=== PATIENT | female | born 1990 | race Caucasian/White ===

== ENCOUNTER 2021-12-14 08:30 | Outpatient (REF) | payer BC, SELFPAY ==
[2021-12-14 11:31] LABS: Hemoglobin 12.7 g/dl (12.0-16.0); Mean Corpuscular HGB Conc 33.4 g/dl (31.0-35.0); Mean Corpuscular Hemoglobin 31.4 pg (27.0-33.0); Mean Corpuscular Volume 94.1 fL (80.0-98.0); Mean Platelet Volume 11.1 fL (9.4-12.3); Platelet Count 225 X10*3/uL (160-400); Red Blood Count 4.04 X10*6/uL (4.20-5.50); Red Cell Distribution Width 11.5 % (11.0-16.0); White Blood Count 4.2 X10*3/uL (4.8-10.8)
[2021-12-14 12:01] LABS: Alanine Aminotransferase 12 U/L (0-31); Albumin Level 4.1 g/dL (3.5-5.0); Alkaline Phosphatase 86 U/L (39-117); Anion Gap 10 (12-20); Aspartate Amino Transferase 21 U/L (5-31); Bilirubin Total 1.1 mg/dL (0.0-1.0); Blood Urea Nitrogen 13 mg/dL (9-16); Calcium 9.4 mg/dL (8.4-10.2); Carbon Dioxide 27 mmol/L (22-29); Chloride 108 mmol/L (96-108); Cholesterol 153 mg/dL; Estimated Glomerular Filt Rate > 60; Glucose Fasting 85 mg/dL (60-99); HDL Cholesterol 54 mg/dL; LDL Cholesterol Calculated 89 mg/dl; Potassium 4.5 mmol/L (3.3-5.1); Sodium 140 mmol/L (135-145); Total Protein 6.7 g/dL (6.5-8.0); Triglycerides 53 mg/dL
[2021-12-14 12:24] LABS: TSH reflex Free T4 0.95 uIU/mL (0.32-4.0)
== END 2021-12-14 08:31 | disposition home or self-care (01) ==
LOC: HO.WFDLDS 08:30
PROVIDERS: Visit Provider Hospitalist
DX: Z00.00 Encounter for general adult medical examination without abnormal findings (principal)
CPT/HCPCS: 36415; 80053; 80061; 84443; 85027

== ENCOUNTER 2022-03-16 08:21 | Outpatient (REF) | payer BC, SELFPAY ==
--- NOTE | ~2022-03-16 | US_ITS ---
EXAMINATION: US ABDOMEN COMPLETE CLINICAL INFORMATION: Epigastric abdominal pain. COMPARISON: None TECHNIQUE: Real-time imaging of the abdominal viscera. FINDINGS: PANCREAS: Normal. ABDOMINAL AORTA: The proximal, mid, and distal segments are normal in caliber. INFERIOR VENA CAVA: Visualized portions are normal. LIVER: Normal. The liver is normal in size. The liver contour is normal. Parenchymal echogenicity is normal. No focal hepatic lesion. There is no intrahepatic biliary duct dilatation seen. GALLBLADDER: Normal. The gallbladder is physiologically distended without evidence of stones, sludge, polyps, wall thickening or pericholecystic fluid. COMMON BILE DUCT: Normal in caliber measuring 0.2 cm in diameter. RIGHT KIDNEY: Normal. No hydronephrosis. No renal calculi or focal parenchymal lesions. The kidney measures 10.4 cm in maximum dimension. LEFT KIDNEY: Findings suggest a small 1.4 cm cyst in the pelvic region No hydronephrosis or renal calculi. The kidney measures 11.1 cm in maximum dimension. SPLEEN: Normal. The spleen measures 9.3 cm in maximum dimension. FREE FLUID: None. US/US abdomen complete IMPRESSION: No acute finding. No evidence of cholelithiasis or cholecystitis. There is no free fluid.
== END 2022-03-16 08:22 | disposition home or self-care (01) ==
LOC: HO.US 08:21
PROVIDERS: Visit Provider Internal Medicine
DX: R10.13 Epigastric pain (principal)
CPT/HCPCS: 76700

== ENCOUNTER 2022-04-15 09:26 | Outpatient (REF) | payer BC, SELFPAY ==
[2022-04-17 15:47] LABS: TS Negative Control Passed; TS Panel A 0; TS Panel B 0; TS Positive Control Passed; TSpotTB Negative (Negative)
== END 2022-04-15 09:27 | disposition home or self-care (01) ==
LOC: HO.WFDLDS 09:26
PROVIDERS: Visit Provider Hospitalist
DX: Z11.1 Encounter for screening for respiratory tuberculosis (principal)
CPT/HCPCS: 36415; 86481

== ENCOUNTER 2022-04-15 10:00 | Outpatient (RCR) | payer BC, SELFPAY ==
--- NOTE | 2022-03-22 14:11 | MHC.PT.EP ---
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 Pt expressing history of L medial>inferior scapular pain which also intermittently radiates down her L tricep. She expresses history of neck pain and demonstrates weakness of periscapular musculature,. She exhibits slumped posture, protracted and elevated L scapula, and weakened scapular stabilizers. Upon exam pt presents with sx most consistent with C6/C7 cervical radiculopathy. She is currently unable to exercise, unable to run, unable to sleep in SL, lift, or be active due to presence of this intermittent radiating pain. She expresses prior history of PT with some limited gains about a year and a half ago but expresses has never had traction treatment in the past. She expresses intermittent use of ibuprofen and poor outcomes/negative side effects from trial of previously prescribed gabapentin. Pt would benefit from attending skilled PT services at a frequency of 2x/week x 4 weeks to address impairments of neck pain, trial postural/scapular stabilization program, trial manual>mechanical cervical traction in effort to centralize L periscapular/L tricep radiating sx, and educate in gradual progression to resume baseline level of exercise. Pt exhibits good rehab potential and has a high level of motivation for therapy. She was educated re: findings of eval, goals of eval, and indications for treatment. Post eval she was trialed with gentle manual C-tx to C6/C7 levels with good tolerance. Pt was also shown some gentle midthoracic mobility and periscapular stretches in effort to reduce muscular tension. Pt exhibits decreased PA translation of mid thoracic region and sensitivity to gentle palpation along spine> medial>inferior border of L scapula. Thank you for this referral. Frequency and Duration: The patient will be seen 2x/week x 4 weeks Short Term Goals: 1. Centralize L UE sx to height of the neck. 2. Pt will demonstrate I HEP. 3. Pt will resume recreational exercise. 4. Demonstrate improved postural awareness in relationship to ADLS/IADLS. 5. Express 25% reduction in sx presentation of L radiating tricep sx. Plastic Joint Maker Goals: 1. Resume recreational exercise MOD I with good joint protection measures/body mechanics. 2. Report 75% reduction of L UE radiating sx to tricep. 3. Resolution of radiating L periscap sx by 75%. 4. I HEP. 5. Resume sleeping in SL MOD I without disturbance secondary to L UE sx. Treatment Plan: Modalities to reduce pain, spasms and effusion. Manual therapy to restore motion and function. Therapeutic exercise to improve strength and flexibility. Neuromuscular re-education for posture and balance. Therapeutic activities to return to functional activities of daily living. Electronically signed by: Yamilka Browne, PT, DPT Please sign and return to therapist. Thank you for your referral.
--- NOTE | 2022-04-15 14:52 | MHC.PT.OD ---
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 Pain Score and Location: 5-6/10 Objective Flowsheet: Tests & Measures see eval Significant crepitus/palpable throughout scapula and thoracic spine with increased thoracic flexion>ext. Exercises Review of Prone tricep kickbacks, rows to neutral, and shoulder extension x 2 set 8R with 3# weight while prone over pillow. review of self mobilization techniques lying both vertically and horizontally along foam roller with strong HEP programs for self care with education and mindfulness to C/S joint protection with technique (crossing arms across chest not pulling from back of neck), open books, with child pose added thread needle combo stretches in effot to open chest and midspine for mobility PRONE PA assessment tender and painful T3-T7 along L side ? L rotation of transverse process rotated- improved symmetry noted vs last session Review of cat/camel stretches, open book/threading needle stretches with arm extended and with elbow flexed (for L UE with R rotation>L rotation), AAROM shoulder flexion/scaption issued last session, AAROM shoulder flexion via bere x 5 minutes for shoulder flexion triggered arm numbness to hand reduced post pendulums, iso scap squeezes. Prone for PA mobs grade 3 sustained T6-T12, Assessment for rotation (+) manual for FRSl thoracic rotation for T6/7. Self mobilization over 1/2 foam roller for PA mobs. SL with arms crossed for guided soft tissue work to medial border of scapula. Prone PA assessment. Self care HEP sheets Iso scap retraction, AAROM shoulder flexion supine with cane, quadriped threading needle with foam roller Modalities Pt verbalized no significant relief with trial of mechanical traction x 2 previous trials so this was held today. Assessment: 04/15/22: Pt has attended 4 sessions and has been educated/compliant with her HEP when outside of PT. She has centralized her L lateral tricep UE sx but continues to express tenderness and constant ache in L T6/T7 region. Upon Posterior>Anterior segmental mobility assessment of T-spine, she exhibits decreased mobility and stiffness compared to lumbar region (has been educated how to address this w/ foam roller at home). She has been issued some gentle periscapular strengthening tasks top which is an improvement from before she started therapy and was unable to exercise at all). Pt may benefit from consult/referral to [facility] physician- she expresses previous history of trigger point injection x 1 with limited gain (some years ago), and previous trial of PT with limited gains. She expresses she had an xray of her thoracic spine 2 or 3 years ago with no significant abnormalities per pt. Pt received trial of mechanical traction to no change of medial per-iscap sx however she no longer has lateral UE radiating down arm. We discussed progress and activities in therapy to date. Therapist offered patient additional appointments but also encouraged her to follow up with PCP office in inquiry for referral to specialist as she has been in therapy for one month, verbalizing frustration with limited gains. Pt has not had MRI ? compression (+) sx consistent with referred pain in [place] area vs vertebral thoracic rotation. Pt was averaging attendance to therapy 1x/week or so and did not express significant gain/reduction in sx with trial mechanical traction however it sometimes may take repeated consistent treatment of such to make strides in goals. 03/31/22 Trial of manual therapy to correct thoracic rotation palpated T6 level on L. Pt able to perform prone therex following without pain (tricep ext most challenging no weight, shoulder ext and rows with 3# weight). Pt unsure but stated she believes she obtained some mild relief of L periscapular sx with trial of sustained mechanical traction this date. AAROM flexion via bere resulted in numbness radiating to hand, eased with shoulder pendulums. Significant palpable creipitus/grinding with increased thoracic flexion/scapular AROM noted. Pt is left hand dominant, 31 y/o female referred to PT from Luz Mcadams DNP, for treatment of Other specified disorders of bone, shoulder other disorders of bone shoulder. Pt expressing history of L medial>inferior scapular pain which also intermittently radiates down her L tricep. She expresses history of neck pain and demonstrates weakness of periscapular musculature,. She exhibits slumped posture, protracted and elevated L scapula, and weakened scapular stabilizers. Upon exam pt presents with sx most consistent with C6/C7 cervical radiculopathy. She is currently unable to exercise, unable to run, unable to sleep in SL, lift, or be active due to presence of this intermittent radiating pain. She expresses prior history of PT with some limited gains about a year and a half ago but expresses has never had traction treatment in the past. She expresses intermittent use of ibuprofen and poor outcomes/negative side effects from trial of previously prescribed gabapentin. Pt would benefit from attending skilled PT services at a frequency of 2x/week x 4 weeks to address impairments of neck pain, trial postural/scapular stabilization program, trial manual>mechanical cervical traction in effort to centralize L periscapular/L tricep radiating sx, and educate in gradual progression to resume baseline level of exercise. Pt exhibits good rehab potential and has a high level of motivation for therapy. She was educated re: findings of eval, goals of eval, and indications for treatment. Post eval she was trialed with gentle manual C-tx to C6/C7 levels with good tolerance. Pt was also shown some gentle midthoracic mobility and periscapular stretches in effort to reduce muscular tension. Pt exhibits decreased PA translation of mid thoracic region and sensitivity to gentle palpation along spine> medial>inferior border of L scapula. Thank you for this referral. PT Plan: manual>mechanical traction, manual therapy for L periscap sx. Assess response to child pose foam roller, open book stretches pec minor lengthening over vertical foam roller stretch HEP IASTM for L UT NOTE__Pt has expressed poor tolerance in past for gentle band work Short Term Goals: 1. Centralize L UE sx to height of the neck. (04/15 Met lateral UE, continues to have medial periscap sx on L) 2. Pt will demonstrate I HEP. (04/15 met) 3. Pt will resume recreational exercise. (04/15 HEP issued not back to baseline) 4. Demonstrate improved postural awareness in relationship to ADLS/IADLS. (04/15: met) 5. Express 25% reduction in sx presentation of L radiating tricep sx. (04/15: met) Instructional Material Director Goals: 1. Resume recreational exercise MOD I with good joint protection measures/body mechanics. 04/15 not met 2. Report 75% reduction of L UE radiating sx to tricep. (04/15: met) 3. Resolution of radiating L periscap sx by 75%. (04/15: no change) 4. I HEP. 5. Resume sleeping in SL MOD I without disturbance secondary to L UE sx. (04/15: limited gains per pt). Electronically signed by: Yamilka Browne, PT, DPT
== END 2022-06-16 15:12 | disposition home or self-care (01) ==
LOC: HO.PTWFD 10:00
PROVIDERS: PCP Hospitalist; Visit Provider Hospitalist
DX: M89.8X1 Other specified disorders of bone, shoulder (principal)
CPT/HCPCS: 97012; 97110; 97140; 97162; 97535

== ENCOUNTER 2022-05-13 09:47 | Outpatient (REF) | payer BC, SELFPAY | END 2022-05-13 09:48 | disposition home or self-care (01) | LOC: HO.WFDLDS 09:47 | PROVIDERS: Visit Provider Family Medicine | DX: Z01.84 Encounter for antibody response examination (principal) | CPT/HCPCS: 36415; 86787 ==

== ENCOUNTER 2023-04-14 08:14 | Outpatient (REF) | payer BC, SELFPAY ==
[2023-04-14 11:58] LABS: Hematocrit 37.4 % (37.0-47.0); Hemoglobin 12.2 g/dl (12.0-16.0); Mean Corpuscular HGB Conc 32.6 g/dl (31.0-35.0); Mean Corpuscular Hemoglobin 30.3 pg (27.0-33.0); Mean Platelet Volume 10.8 fL (9.4-12.3); Platelet Count 222 X10*3/uL (160-400); Red Blood Count 4.02 X10*6/uL (4.20-5.50); Red Cell Distribution Width 11.7 % (11.0-16.0); White Blood Count 4.1 X10*3/uL (4.8-10.8)
[2023-04-14 12:20] LABS: Alanine Aminotransferase 12 U/L (0-31); Alkaline Phosphatase 66 U/L (39-117); Anion Gap 11 (12-20); Aspartate Amino Transferase 21 U/L (5-31); Bilirubin Total 0.8 mg/dL (0.0-1.0); Blood Urea Nitrogen 17 mg/dL (9-16); Calcium 9.2 mg/dL (8.4-10.2); Carbon Dioxide 26 mmol/L (22-29); Chloride 107 mmol/L (96-108); Cholesterol 159 mg/dL; Estimated Glomerular Filt Rate > 60; Glucose Fasting 84 mg/dL (60-99); HDL Cholesterol 68 mg/dL; LDL Cholesterol Calculated 84 mg/dl; Potassium 4.6 mmol/L (3.3-5.1); Sodium 139 mmol/L (135-145); Total Protein 6.5 g/dL (6.5-8.0); Triglycerides 39 mg/dL
== END 2023-04-14 08:15 | disposition home or self-care (01) ==
LOC: HO.WFDLDS 08:14
PROVIDERS: Visit Provider Hospitalist
DX: Z00.00 Encounter for general adult medical examination without abnormal findings (principal)
CPT/HCPCS: 36415; 80053; 80061; 84443; 85027

== ENCOUNTER 2024-03-12 12:24 | Outpatient (AMB) | payer BC, SELFPAY ==
--- NOTE | 2024-03-12 12:29 | A.OFFPC_ITS ---
Vital Signs 03/12/24 12:34 Height 5 ft 2 in Weight 150 lb 2 oz BMI 27.5 BP 92/60 Blood Pressure Location Rt brachial Position Sitting Respiration 12 Pulse 87 Pulse Source Pulse Oximeter Temp 98.2 F Temp Source Oral Pulse Oximetry (%) 99 Oxygen Delivery Method Room Air Intake Visit Reasons: Establish care/physical Intake Note: Physical. 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: No Was dental information given to patient?: Patient has dentist HPI HPI Comments History of Present Illness Details 33-year-old female presents for transfer of care. Her former PCP is MAX who has no longer with the practice. She was last seen in January, She has history of depression. She is on citalopram 30 mg daily which he admits to taking as prescribed without adverse reactions. 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 She reports controlled depression symptoms on current treatment regimen. He reports frontal and maxillary sinus pressure and nasal congestion. She also notes associated fatigue. Her symptoms have been ongoing for the past 2 weeks. She has been taking DayQuil. No fever, chills, body aches, or weakness. She notes that her last pap smear test with [facility] director organizational was about a year ago: normal She notes that she is up-to-date on the flu vaccine [facility] Surgical History (Updated 09/07/23 @ 14:18 by Krystin Cabral) No pertinent past surgical history Family History (System 09/07/23 @ 14:18 by Krystin Cabral) Mother No problems noted. Father High blood pressure High cholesterol Mental health disorder Social History (System 09/07/23 @ 14:18 by Krystin Cabral) Housing: House Alcohol intake: current Alcohol intake frequency: holidays/special occasions only Patient Tobacco Use Status: Never used Tobacco e-Cigarette/Vaping Use: Never Used Second Hand Smoke Exposure: No service: No Current occupational status: employed and unemployed Current occupation: [employer] Current occupational exposures/hazards: No Cognitive needs: No Hearing needs: No Vision needs: Yes (Glasses) Female Reproductive History Menstrual Date of last menstrual period: 03/09/24 Questionnaire PHQ-9 Over the last 2 weeks, how often have you been bothered by any of the following problems? 1. Little interest or pleasure in doing things: not at all 2. Feeling down, depressed, or hopeless: not at all 3. Trouble falling or staying asleep, or sleeping too much: not at all 4. Feeling tired or having little energy: not at all 5. Poor appetite or overeating: not at all 6. Feeling bad about yourself - or that you are a failure or have let yourself or your family down: not at all 7. Trouble concentrating on things, such as reading the newspaper or watching television: not at all 8. Moving or speaking so slowly that other people could have noticed. Or the opposite - being so fidgety or restless that you have been moving around a lot more than usual: not at all 9. Thoughts that you would be better off or of hurting yourself in some way: not at all Total score: 0 Depression Screening Interpretation: Negative Depression Screening Done: Yes 82374 - PHQ-9 Billing: Yes Source: Developed by Drs. Marshall Worley, Nery Zacarias, Enrique Barrera and colleagues, with an educational raul from [employer]. Thrive Questionnaire Date Thrive assessed: 03/12/24 I am a: Patient What is your living situation today?: I have a steady place to live Within the past 12 months, did the food you bought not last and you didn't have the money to get more?: Never true Within the past 12 months, did you worry whether your food would run out before you got money to buy more?: Never true Do you have trouble paying for medicines?: No Do you have trouble getting transportation to medical appointments?: No Do you have trouble paying your heating and electricity bill?: No Do you have trouble taking care of your child, family member or friend?: No Do you have trouble with day-to-day activities such as bathing, preparing meals, shopping, managing finances, etc.?: No Are you currently unemployed and looking for a job?: No Are you interested in more education?: No Please select the resources that you would like help with: None THRIVE Score: 0 AUDIT C Alcohol Use Questionnaire (AUDIT-C) 1. How often do you have a drink containing alcohol?: Monthly or less 2. How many drinks containing alcohol do you have on a typical day when you are drinking?: 1 or 2 3. How often do you have six or more drinks on one occasion?: Never Total Score: 1 RACHEL-7 AMB Questionnaire RACHEL-7 Date RACHEL - 7 assessed: 03/12/24 Feeling nervous, anxious, or on edge: 0 = Not at all Not being able to stop or control worryin = Not at all Worrying too much about different things: 0 = Not at all Trouble relaxin = Not at all Being so restless that it is hard to sit still: 0 = Not at all Becoming easily annoyed or irritable: 0 = Not at all Feeling afraid as if something awful might happen: 0 = Not at all Total RACHEL-7 score (0-4 normal; 5-9 mild; 10-14 moderate; 15-21 severe): 0 Source: Developed by Drs. Marshall Worley, Nery Zacarias, Enrique Barrera and colleagues, with an educational raul from [employer]. RACHEL-7 Assessment Billing RACHEL-7 Assessment Tool: RACHEL-7 Assessment 05869 Review of Systems Const Details: Denies chills, Reports fatigue, Denies fever(s), Denies headache(s) and Denies weakness HEENT Reports as per HPI Card Denies chest pain, Denies lightheadedness, Denies dyspnea and Denies other (palpitations) Resp Denies cough, Denies dyspnea and Denies wheezing GI Denies abdominal pain, Denies melena, Denies hematochezia, Denies change in bowel habits, Denies dyspepsia and Denies nausea Denies hematuria and Denies dysuria Musc Denies abnormal gait, Denies myalgias, Denies arthralgias, Denies numbness and Denies tingling Skin/Breast Denies rash, Denies unusual bruising and Denies wounds Neuro Denies abnormal gait, Denies dizziness, Denies headache(s), Denies memory loss, Denies numbness, Denies Sensory deficit (Neuro), Denies tingling and Denies weakness Psych Denies anxiety, Denies depression and Denies memory loss Endo Denies cold intolerance, Reports fatigue, Denies heat intolerance, Denies polydipsia and Denies polyuria Julian/Lymph Denies easy bleeding and Denies easy bruising Aller/Immun Denies wheezing Physical exam (Primary Care) Vital Signs: Last Vital Signs Temp 98.2 F 03/12/24 12:34 Pulse 87 03/12/24 12:34 Resp 12 03/12/24 12:34 BP 92/60 03/12/24 12:34 Pulse Ox 99 03/12/24 12:34 Oxygen Delivery Method Room Air 03/12/24 12:34 BMI result Body Mass Index 27.5 Tobacco/Smoking Status: Tobacco use Status Tobacco use date assessed 01/10/22 01/26/23 15:03 Patient Tobacco Use Status Never used Tobacco 01/26/23 15:03 e-Cigarette/Vaping Use Never Used 01/26/23 15:03 Depression Screening Interpretation: Negative Thrive Assessment: Date of Thrive Assessment Date Thrive assessed 01/26/23 01/26/23 15:11 Const Other: General: no acute distress, well developed, alert and awake Nutritional Appearance: well nourished Orientation/consciousness: patient oriented x3 HENMT Head is normocephalic Bilateral ear canal and TM are normal Nasal turbinates with slight erythema and edema Oropharynx are pink and moist Sinuses are nontender with palpation No auricular or cervical lymphadenopathy Ears: hearing grossly normal bilaterally and TM's normal bilaterally General nose exam: Normal external nose present and Normal nares present Mouth: Normal oral and palatal mucosa present and moist mucous membranes Teeth and gingiva: dentition normal Throat: Yes oropharynx normal Eyes Pupils: Equal, round and reactive pupils present and Pupil accommodation reflex normal EOM: EOMs intact bilaterally Neck Neck: Yes normal visual inspection, Yes no lymphadenopathy and Yes trachea midline Thyroid: Thyroid normal Carotids: no bruits Lymphatic: no lymphadenopathy noted Chest Chest palpation & inspection: normal inspection of the chest Resp Effort & Inspection: normal respiratory effort Auscultation: clear to auscultation bilaterally Cardio Rate: regular rate Rhythm: regular rhythm Heart sounds: S1 normal heart sound present, S2 normal heart sound present, no gallops, no murmurs and no rubs Bruits: no abdominal aortic bruits and no carotid bruits GI Palpation (GI): No Abdominal aortic bruit present, Soft to palpation, nontender, No hepatosplenomegaly present and No Rebound tenderness present Auscultation: normal bowel sounds General: Yes no CVA tenderness Back/Spine/Pelvis Back: no CVA tenderness Cervical Spine: cervical ROM normal and No Cervical spine tenderness Thoracic/Lumbar Spine: thoraco-lumbar ROM normal, No pain with thoraco-lumbar ROM, No thoracic spinal tenderness and No lumbar spinal tenderness Skin General: warm and dry. Normal skin color. Normal skin turgor Lesions: no lesions Rashes: no rashes Trauma: no lacerations or abrasions Wounds: no wounds Nails: normal Neuro General: patient oriented x3, gait normal and CN's II-XI intact bilaterally Cranial nerves: Yes Equal, round and reactive pupils present Cognition (Neuro): normal cognition Gait exam (Neuro): Normal gait present Motor exam (neuro): 5/5 motor strength present throughout Sensory Exam: No Sensory deficit (Neuro) Deep tendon reflexes (DTR's): Right patellar reflex intensity grade: 2+ and Left patellar reflex intensity grade: 2+ Extrem General: Yes normal to inspection, No edema and No calf tenderness Psych Appearance: grossly normal Affect: normal affect Attitude: cooperative Thought process: Normal thought process present Assessment and Plan Assessment & Plan (1) Normal physical exam: Code(s): Z00.00 - Encounter for general adult medical examination without abnormal findings Plan: No significant physical restrictions or limitations noted Continue current treatment regimen Healthy diet and routine exercise encouraged Follow-up in 2 months for depression and lab reviews Return sooner with symptoms or concerns Verbalized understanding and agreed with treatment plan (2) Sinusitis: Code(s): J32.9 - Chronic sinusitis, unspecified Plan: Frontal and maxillary sinus pressure, nasal congestion, and fatigue x 2 weeks Nasal turbinates with slight erythema and edema Likely viral illness with superimposed bacterial infection Amoxicillin ordered. Advised to take as prescribed May take Tylenol ibuprofen for pain, fever, or discomfort Adequate hydration encouraged Follow-up with worsening or new symptoms Verbalized understanding and agreed with treatment plan (3) Laboratory tests ordered as part of a complete physical exam (CPE): Code(s): Z00.00 - Encounter for general adult medical examination without abnormal findings Plan: Fasting labs ordered as part of a complete physical exam. Advised to fast for at least 10 hours before getting labs drawn. May drink water Verbalized understanding and agreed with treatment plan. Orders: Orders Complete Blood Count Auto Diff Today Z00.00 - Encounter for general adult medical examination without abnormal findings Comprehensive [place]. Panel Fast Today Z00.00 - Encounter for general adult medical examination without abnormal findings Lipid Panel Today Z00.00 - Encounter for general adult medical examination without abnormal findings TSH reflex Free T4 Today Z00.00 - Encounter for general adult medical examination without abnormal findings UA CC w/rflx Micro + Cult Today Z00.00 - Encounter for general adult medical examination without abnormal findings Medications: New amoxicillin 875 mg PO BID 7 days 14 tabs 0RF Coding Level of Care Code Est Pt Level 3 (31847) Est Pt Prev Care 18-39y(56653) Diagnoses Normal physical exam Z00.00 Sinusitis J32.9 Laboratory tests ordered as part of a complete physical exam (CPE) Z00.00 Additional Codes RACHEL-7 Assessment Billing - RACHEL-7 Assessment Tool: RACHEL-7 Assessment 37400 ([id number])
[2024-03-12 12:34] VITALS: BP 92/60; PULSE 87; RESP 12; TEMP 36.8; O2SAT 99; BMI 27.5
== END 2024-03-12 13:00 | disposition home or self-care (01) ==
PROVIDERS: Visit Provider Nurse Practitioner Family
DX: Z00.00 Encounter for general adult medical examination without abnormal findings (principal); J32.9 Chronic sinusitis, unspecified
CPT/HCPCS: 99213; 99395

== ENCOUNTER 2024-07-02 08:19 | Outpatient (REF) | payer BC, SELFPAY ==
[2024-07-02 11:14] LABS: MANUAL DIFF FLAG NO
[2024-07-02 11:14] LABS: Appearance Urine Clear; Color Urine Yellow; Glucose Urine UA Negative (Negative); Leukocyte Esterase Urine Negative (Negative); Nitrite Urine Negative (Negative); PH 7.5 (5.0-9.0); Specific Gravity - Urine 1.015 (1.005-1.025); Urine Blood Negative (Negative); Urine Ketones Negative (Negative); Urine Protein Negative (Neg-Trace)
[2024-07-02 11:28] LABS: Basophils Percent Auto 0.5 % (0-2); Eosinophils Absolute Auto 0.1 X10*3/uL (0.0-0.4); Eosinophils Percent Auto 2.3 % (0-4); Hematocrit 38.5 % (37.0-47.0); Hemoglobin 13.1 g/dl (12.0-16.0); Imm Gran Abs Auto 0.01 X10*3/uL (0.00-0.03); Imm Gran Pct Auto 0.2 % (0.0-0.4); Lymphocytes Absolute Auto 2.1 X10*3/uL (1.2-4.9); Lymphocytes Percent Auto 49.1 % (20-40); Mean Corpuscular Hemoglobin 30.8 pg (27.0-33.0); Mean Corpuscular Volume 90.4 fL (80.0-98.0); Mean Platelet Volume 10.5 fL (9.4-12.3); Monocytes Absolute Auto 0.4 X10*3/uL (0.1-1.2); Monocytes Percent Auto 8.8 % (2-11); Neutrophils Absolute Auto 1.7 x10*3/uL (2.0-8.3); Neutrophils Percent Auto 39.1 % (45-73); Platelet Count 253 X10*3/uL (160-400); Red Blood Count 4.26 X10*6/uL (4.20-5.50); Red Cell Distribution Width 11.8 % (11.0-16.0); White Blood Count 4.3 X10*3/uL (4.8-10.8)
[2024-07-02 12:01] LABS: Alanine Aminotransferase 20 U/L (0-31); Albumin Level 4.4 g/dL (3.5-5.0); Alkaline Phosphatase 73 U/L (39-117); Anion Gap 11 (12-20); Aspartate Amino Transferase 24 U/L (5-31); Bilirubin Total 0.6 mg/dL (0.0-1.0); Blood Urea Nitrogen 11 mg/dL (9-16); Calcium 9.7 mg/dL (8.4-10.2); Carbon Dioxide 30 mmol/L (22-29); Chloride 103 mmol/L (96-108); Cholesterol 184 mg/dL (<200); Estimated Glomerular Filt Rate > 60; Glucose Fasting 93 mg/dL (60-99); HDL Cholesterol 63 mg/dL (>40); LDL Cholesterol Calculated 107 mg/dL (<100); Potassium 4.3 mmol/L (3.3-5.1); Sodium 140 mmol/L (135-145); TSH reflex Free T4 1.16 uIU/mL (0.32-4.0); Total Protein 7.2 g/dL (6.5-8.0); Triglycerides 71 mg/dL (<150)
== END 2024-07-02 08:20 | disposition home or self-care (01) ==
LOC: HO.WFDLDS 08:19
PROVIDERS: Visit Provider Nurse Practitioner Family
DX: Z00.00 Encounter for general adult medical examination without abnormal findings (principal)
CPT/HCPCS: 36415; 80053; 80061; 81003; 84443; 85025

== ENCOUNTER 2024-07-26 14:26 | Outpatient (AMB) | payer BC, SELFPAY ==
--- NOTE | 2024-07-26 14:18 | MHC.PC.OV ---
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 Is last menstrual period known: Yes Last menstrual period: 07/18/24 Post menopausal: No Allergies Sulfa (Sulfonamide Antibiotics) Allergy (Intermediate, Verified 07/26/24 14:23) Hives Tobacco use date assessed: 07/26/24 Dental Screening Dental Screen Date: 03/12/24 HPI HPI Comments History of Present Illness Details 33 y/o female presents for a telehealth visit for Depression and review of recent lab results She admits to taking her medications as prescribed without adverse reactions She reports controlled depressive symptoms She offers no complaints and denies acute symptoms PFSH Surgical History (Updated 09/07/23 @ 14:18 by Krystin Cabral) No pertinent past surgical history Family History (System 09/07/23 @ 14:18 by Krystin Cabral) Mother No problems noted. Father High blood pressure High cholesterol Mental health disorder Social History (System 09/07/23 @ 14:18 by Krystin Cabral) Housing: House Alcohol intake: current Alcohol intake frequency: holidays/special occasions only Patient Tobacco Use Status: Never used Tobacco e-Cigarette/Vaping Use: Never Used Second Hand Smoke Exposure: No service: No Current occupational status: employed and unemployed Current occupation: [employer] Current occupational exposures/hazards: No Cognitive needs: No Hearing needs: No Vision needs: Yes (Glasses) Female Reproductive History Menstrual Date of last menstrual period: 07/18/24 Questionnaire PHQ-9 Over the last 2 weeks, how often have you been bothered by any of the following problems? 1. Little interest or pleasure in doing things: not at all 2. Feeling down, depressed, or hopeless: not at all 3. Trouble falling or staying asleep, or sleeping too much: not at all 4. Feeling tired or having little energy: not at all 5. Poor appetite or overeating: not at all 6. Feeling bad about yourself - or that you are a failure or have let yourself or your family down: not at all 7. Trouble concentrating on things, such as reading the newspaper or watching television: not at all 8. Moving or speaking so slowly that other people could have noticed. Or the opposite - being so fidgety or restless that you have been moving around a lot more than usual: not at all 9. Thoughts that you would be better off or of hurting yourself in some way: not at all Total score: 0 Depression Screening Interpretation: Negative Depression Screening Done: Yes 70453 - PHQ-9 Billing: Yes Source: Developed by Drs. Marshall Worely, Nery Zacarias, Enrique Barrera and colleagues, with an educational raul from [employer]. Thrive Questionnaire Date Thrive assessed: 03/12/24 RACHEL-7 AMB Questionnaire RACHEL-7 Date RACHEL - 7 assessed: 07/26/24 Feeling nervous, anxious, or on edge: 0 = Not at all Not being able to stop or control worryin = Not at all Worrying too much about different things: 0 = Not at all Trouble relaxin = Not at all Being so restless that it is hard to sit still: 0 = Not at all Becoming easily annoyed or irritable: 0 = Not at all Feeling afraid as if something awful might happen: 0 = Not at all Total RACHEL-7 score (0-4 normal; 5-9 mild; 10-14 moderate; 15-21 severe): 0 Source: Developed by Drs. Marshall Worley, Nery Zacarias, Enrique Barrera and colleagues, with an educational raul from [employer]. RACHEL-7 Assessment Billing RACHEL-7 Assessment Tool: RACHEL-7 Assessment 35933 Review of Systems Const Details: Const Denies chills, Denies fatigue, Denies fever(s), Denies headache(s) and Denies weakness ENT Denies dizziness and Denies headache(s) Card Denies chest pain, Denies lightheadedness, Denies dyspnea and Denies other (Palpitations) Resp Denies cough, Denies dyspnea, Denies wheezing and Denies other ( shortness of breath) GI Denies abdominal pain, Denies melena, Denies hematochezia, Denies change in bowel habits, Denies dyspepsia and Denies nausea Denies hematuria and Denies dysuria Musc Denies abnormal gait, Denies myalgias, Denies arthralgias, Denies numbness and Denies tingling Skin/Breast Denies rash, Denies unusual bruising and Denies wounds Neuro Denies abnormal gait, Denies dizziness, Denies headache(s), Denies memory loss, Denies numbness, Denies Sensory deficit (Neuro), Denies tingling and Denies weakness Psych Denies anxiety, Denies depression, Denies memory loss Endo Denies cold intolerance, Denies fatigue, Denies heat intolerance, Denies polydipsia and Denies polyuria Aller/Immun Denies wheezing Physical exam (Primary Care) Tobacco/Smoking Status: Tobacco use Status Tobacco use date assessed 07/26/24 07/26/24 14:25 Patient Tobacco Use Status Never used Tobacco 07/26/24 14:20 e-Cigarette/Vaping Use Never Used 07/26/24 14:20 PHQ-9: PHQ-9 Score PHQ-9: Total score 0 07/26/24 14:35 Depression Screening Interpretation: Negative Thrive Assessment: Date of Thrive Assessment Date Thrive assessed 03/12/24 07/26/24 14:20 Const Other: Telehealth. No physical exam Telehealth Telehealth Telehealth Platform: Telephone Location of provider rendering services: practice address Location of patient: address on file Patient Identification confirmed using: Name, : Yes Telehealth method: voice only Patient verbally consented to treatment: Yes Patient verbally consented to billing insurance company: Yes Patient informed of any privacy concerns related to visit: Yes Assessment and Plan Assessment & Plan (1) Depression: Code(s): F32.A - Depression, unspecified Plan: Reports controlled depressive symptoms PHQ-9 and RACHEL-7 scores are normal Continue to take citalopram 30 mg daily Routine exercise encouraged Follow-up for telehealth visit in 4 months or sooner with symptoms or concerns Verbalized understanding and agreed with the treatment plan Recent labs reviewed with the patient; Unremarkable findings Medications: Refilled citalopram 10 mg PO DAILY 30 days 30 tabs 3RF citalopram 20 mg PO DAILY 30 days 30 tabs 3RF F32.A - Depression, unspecified Coding Level of Care Code Tele Est Pt Level 3 (00986) Diagnoses Depression F32.A Additional Codes RACHEL-7 Assessment Billing - RACHEL-7 Assessment Tool: RACHEL-7 Assessment 47504 ([id number]) Time Spent (min) 15
== END 2024-07-26 15:12 | disposition home or self-care (01) ==
LOC: HO.HMGFM 14:26
PROVIDERS: PCP Nurse Practitioner Family; Visit Provider Nurse Practitioner Family
DX: F32.A Depression, unspecified (principal)
CPT/HCPCS: 99442

== ENCOUNTER 2024-10-09 10:38 | Outpatient (AMB) | payer BC, SELFPAY ==
--- NOTE | 2024-10-09 10:42 | MHC.PC.OV ---
Vital Signs 10/09/24 10:53 Height 5 ft 2 in Weight 165 lb 6 oz BMI 30.2 BP 102/68 Blood Pressure Location Rt brachial Position Sitting Respiration 16 Pulse 89 Pulse Source Pulse Oximeter Temp 98.9 F Temp Source Oral Pulse Oximetry (%) 100 Oxygen Delivery Method Room Air Intake Visit Reasons: EST/REFFERAL FOR GI doctor Intake Note: patient here for referral for GI doctor. Print Line Feeder Required: No Is last menstrual period known: Yes Last menstrual period: 09/19/24 Post menopausal: No Patient : No Allergies Sulfa (Sulfonamide Antibiotics) Allergy (Intermediate, Verified 10/09/24 11:16) Hives sulfamethoxazole [From Bactrim] Allergy (Mild, Verified 10/09/24 11:16) Hives trimethoprim [From Bactrim] Allergy (Mild, Verified 10/09/24 11:16) Hives Medication List - Last Reconciled 10/09/24 by Obed Villa CNP citalopram 10 mg PO DAILY 30 days citalopram 20 mg PO DAILY 30 days Tobacco use date assessed: 10/09/24 Dental Screening Dental Screen Date: 10/09/24 Did you have a dental visit in the last 12 months?: Yes Did you have a dental problem in the last 6 months where you did not have access to dental care?: No Was dental information given to patient?: Patient has dentist HPI HPI Comments History of Present Illness Details 33-year-old female present with complaints of ED discharge follow up She notes that she evaluated at [facility] for for abdominal pain on 10/05/2024. She was admitted and discharged on 10/07/2024. She notes that her abdominal CT revealed sbo and liver cyst. She was advised to follow up with gastroentrology. She is followed by Dr. Mejia, gastroentrology and requests a referred for him. Review of [facility] notes: On 10/05/2024, the patient presented with complaints of diffuse abdominal pain, nausea, and vomiting. She notes an associated sweats and chills the night before. Her last bowel movement was the same day she presented to the ED. CT abdomen/pelvis with IV contrast revealed the followin. Extensive proximal to mid small bowel viral fluid filled dilatation extended to the pelvis with a transitional point of the lower pelvis consistent with small-bowel obstruction. There is diffuse thickening of the small bowel wall. 2. Small abdominopelvic ascites. There is no evidence of bowel obstruction. 3. Prominent appendix measuring up to 1 cm in diameter without evidence of adjacent inflammatory changes. 4. Ill-defined heterogeneous lesion in the right lobe of the liver. Clinical correlation is recommended. Further evaluation may be performed with a nonemergent MRI with and without contrast. Labs were unremarkable She was discharged on 10/07/2024 with recommendation to follow-up with her PCP She notes that her abdominal pain has significantly improved. She notes intermittent nausea and mild-moderate discomfort upper abdomen. She denies changes in bowel habits; no diarrhea, constipation, or bloody stools. 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 She has an appointment with them on 10/14/2024. [facility] Surgical History (Updated 09/07/23 @ 14:18 by Krystin Cabral) No pertinent past surgical history Family History (System 09/07/23 @ 14:18 by Krystin Cabral) Mother No problems noted. Father High blood pressure High cholesterol Mental health disorder Social History (System 09/07/23 @ 14:18 by Krystin Cabral) Housing: House Alcohol intake: current Alcohol intake frequency: holidays/special occasions only Patient Tobacco Use Status: Never used Tobacco e-Cigarette/Vaping Use: Never Used Second Hand Smoke Exposure: No service: No Current occupational status: employed and unemployed Current occupation: [employer] Current occupational exposures/hazards: No Cognitive needs: No Hearing needs: No Vision needs: Yes (Glasses) Female Reproductive History Menstrual Date of last menstrual period: 09/19/24 Questionnaire PHQ-9 Over the last 2 weeks, how often have you been bothered by any of the following problems? 1. Little interest or pleasure in doing things: not at all 2. Feeling down, depressed, or hopeless: not at all 3. Trouble falling or staying asleep, or sleeping too much: not at all 4. Feeling tired or having little energy: several days 5. Poor appetite or overeating: not at all 6. Feeling bad about yourself - or that you are a failure or have let yourself or your family down: not at all 7. Trouble concentrating on things, such as reading the newspaper or watching television: not at all 8. Moving or speaking so slowly that other people could have noticed. Or the opposite - being so fidgety or restless that you have been moving around a lot more than usual: not at all 9. Thoughts that you would be better off or of hurting yourself in some way: not at all Total score: 1 Depression Screening Interpretation: Negative Depression Screening Done: Yes Source: Developed by Drs. Marshall Worley, Nery Zacarias, Enrique Barrera and colleagues, with an educational raul from [employer]. Thrive Questionnaire Date Thrive assessed: 10/09/24 I am a: Patient What is your living situation today?: I have a steady place to live Within the past 12 months, did the food you bought not last and you didn't have the money to get more?: Never true Within the past 12 months, did you worry whether your food would run out before you got money to buy more?: Never true Do you have trouble paying for medicines?: No Do you have trouble getting transportation to medical appointments?: No Do you have trouble paying your heating and electricity bill?: No Do you have trouble taking care of your child, family member or friend?: No Do you have trouble with day-to-day activities such as bathing, preparing meals, shopping, managing finances, etc.?: No Are you currently unemployed and looking for a job?: No Are you interested in more education?: No Please select the resources that you would like help with: None Currently or been in a relationship where the following occur: No concerns reported THRIVE Score: 0 AUDIT C Alcohol Use Questionnaire (AUDIT-C) 1. How often do you have a drink containing alcohol?: Never Total Score: 0 RACHEL-7 AMB Questionnaire RACHEL-7 Date RACHEL - 7 assessed: 10/09/24 Feeling nervous, anxious, or on edge: 0 = Not at all Not being able to stop or control worryin = Not at all Worrying too much about different things: 0 = Not at all Trouble relaxin = Not at all Being so restless that it is hard to sit still: 0 = Not at all Becoming easily annoyed or irritable: 0 = Not at all Feeling afraid as if something awful might happen: 0 = Not at all Total RACHEL-7 score (0-4 normal; 5-9 mild; 10-14 moderate; 15-21 severe): 0 Source: Developed by Drs. Marshall Worley, Nery Zacarias, Enrique Barrera and colleagues, with an educational raul from [employer]. Review of Systems Const Details: Const Denies chills, Denies fatigue, Denies fever(s), Denies headache(s) and Denies weakness ENT Denies dizziness and Denies headache(s) Card Denies chest pain, Denies lightheadedness, Denies dyspnea and Denies other (Palpitations) Resp Denies cough, Denies dyspnea, Denies wheezing and Denies other ( shortness of breath) GI Reports as per HPI Denies hematuria and Denies dysuria Musc Denies abnormal gait, Denies myalgias, Denies arthralgias, Denies numbness and Denies tingling Skin/Breast Denies rash, Denies unusual bruising and Denies wounds Neuro Denies abnormal gait, Denies dizziness, Denies headache(s), Denies memory loss, Denies numbness, Denies Sensory deficit (Neuro), Denies tingling and Denies weakness Psych Denies anxiety, Denies depression, Denies memory loss Endo Denies cold intolerance, Denies fatigue, Denies heat intolerance, Denies polydipsia and Denies polyuria Aller/Immun Denies wheezing Physical exam (Primary Care) Vital Signs: Last Vital Signs Temp 98.9 F 10/09/24 10:53 Pulse 89 10/09/24 10:53 Resp 16 10/09/24 10:53 BP 102/68 10/09/24 10:53 Pulse Ox 100 10/09/24 10:53 Oxygen Delivery Method Room Air 10/09/24 10:53 BMI result Body Mass Index 30.2 Tobacco/Smoking Status: Tobacco use Status Tobacco use date assessed 10/09/24 10/09/24 10:54 Patient Tobacco Use Status Never used Tobacco 10/09/24 10:45 e-Cigarette/Vaping Use Never Used 10/09/24 10:45 PHQ-9: PHQ-9 Score PHQ-9: Total score 1 10/09/24 10:45 Depression Screening Interpretation: Negative Thrive Assessment: Date of Thrive Assessment Date Thrive assessed 10/09/24 10/09/24 10:54 Currently or been in a relationship where the following occur: No concerns reported Const Other: General: no acute distress and well developed Nutritional Appearance: well nourished Orientation/consciousness: patient oriented x3 [facility] Head: Yes normocephalic and Yes atraumatic Eyes General: appearance normal, both eyes and all related structures Pupils: Equal, round and reactive pupils present EOM: EOMs intact bilaterally Resp Effort & Inspection: normal respiratory effort Auscultation: clear to auscultation bilaterally Cardio Rate: regular rate Rhythm: regular rhythm Heart sounds: S1 normal heart sound present, S2 normal heart sound present, no gallops, no murmurs and no rubs GI Palpation (GI): No Abdominal aortic bruit present, Soft to palpation, tender, No hepatosplenomegaly present and No Rebound tenderness present Auscultation: normal bowel sounds General: Yes no CVA tenderness Back/Spine/Pelvis Back: no CVA tenderness Cervical Spine: cervical ROM normal and No Cervical spine tenderness Thoracic/Lumbar Spine: thoraco-lumbar ROM normal, No pain with thoraco-lumbar ROM, No thoracic spinal tenderness and No lumbar spinal tenderness Extrem General: Yes normal to inspection, No edema and No calf tenderness Skin General: warm and dry. Normal skin color. Normal skin turgor Neuro General: patient oriented x3, gait normal and no focal neuro deficit Cranial nerves: Yes Equal, round and reactive pupils present Cognition (Neuro): normal cognition Gait exam (Neuro): Normal gait present Sensory Exam: No Sensory deficit (Neuro) Psych Appearance: grossly normal Affect: normal affect Attitude: cooperative Thought process: Normal thought process present Coding Level of Care Code Est Pt Level 4 (21863) Diagnoses Abdominal pain R10.9 SBO (small bowel obstruction) K56.609 Liver lesion, right lobe K76.9 Gestational trophoblastic neoplasm O01.9 Assessment & Plan Assessment & Plan (1) Abdominal pain: Code(s): R10.9 - Unspecified abdominal pain Category: Medical Plan: Patient was recently evaluated and treated at [facility] for abdominal pain. CT revealed SBO and ill-defined heterogeneous lesions in the right lobe of the liver. She was admitted for 2 days and discharged with recommendation for GI follow-up. She notes significant improvement of her an abdominal pain since discharge. However, she continues to experience mild-moderate nausea and abdominal discomfort. No changes in bowel habits. She is followed by Dr. Mejia, gastroenterology, and requests a referral for him. Referred to Dr. Mejia. Advised to follow-up with worsening or new symptoms. Verbalized understanding and agreed with the treatment plan. 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
[2024-10-09 10:53] VITALS: BP 102/68; PULSE 89; RESP 16; TEMP 37.2; O2SAT 100; BMI 30.2
== END 2024-10-09 11:37 | disposition home or self-care (01) ==
PROVIDERS: PCP Nurse Practitioner Family; Visit Provider Nurse Practitioner Family
DX: R10.9 Unspecified abdominal pain (principal); K56.609 Unspecified intestinal obstruction, unspecified as to partial versus complete obstruction; K76.9 Liver disease, unspecified; O01.9 Hydatidiform mole, unspecified

== ENCOUNTER 2024-12-25 13:49 | Outpatient (AMB) | payer BC, SELFPAY ==
--- NOTE | 2024-12-25 14:08 | MHC.PC.OV ---
Vital Signs 12/25/24 14:30 Weight 164 lb 6 oz BP 96/56 L Blood Pressure Location Lt brachial Position Sitting Pulse 88 Pulse Source Pulse Oximeter Pulse Oximetry (%) 98 Oxygen Delivery Method Room Air Intake Visit Reasons: DONALD from [facility] Intake Note: New patient visit Marketing Content Coordinator Required: No Allergies Sulfa (Sulfonamide Antibiotics) Allergy (Intermediate, Verified 12/25/24 14:09) Hives sulfamethoxazole [From Bactrim] Allergy (Mild, Verified 12/25/24 14:09) Hives trimethoprim [From Bactrim] Allergy (Mild, Verified 12/25/24 14:09) Hives Medication List - Last Reconciled 12/25/24 by Tania Najera PA-C citalopram 20 mg PO DAILY 30 days Tobacco use date assessed: 12/25/24 Dental Screening Dental Screen Date: 12/25/24 Did you have a dental visit in the last 12 months?: Yes Did you have a dental problem in the last 6 months where you did not have access to dental care?: No Was dental information given to patient?: Patient has dentist HPI DONALD from [facility] HPI Details Pt is a 34 y/o female who presents today to to [facility]. She is transferring internally. She does have a history of a small-bowel obstruction diagnosed a few months ago, mild depression, mild anxiety and a history of gestational trophoblastic neoplasm GI: She did see [facility] following her SBO and had a colonoscopy, gastric emptying study and MRI of the abdomen and pelvis. Everything came back normal. She states that she had intense abdominal pain and went to [facility] by ambulance. She states it was worse than labor pain. When she arrived they did do a CT with contrast and realize that she had an SBO. She did not have abdominal surgery but she did have chemo and methotrexate a year prior. When they did the colonoscopy they did not know any adhesions. They thought she possibly had Crohn's disease but that also came back as negative. She states all the labs looked normal and that she was told she was a mystery to them. She did meet with an oncologist as well. She has been fine since her hospitalization. She was discharged after 2-3 days. 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 She did follow with a dental billing specialist following that because they were trying to get . She was told the likelihood of her being able to conceive was very low due to the amount of chemo. She is currently working with [employer] and has a foster to adopt one-month old. She also has a biological 3-year-old daughter at home. Psych: is well controlled on citalopram 20 mg. No SI/HI. Has been on citalopram for about a decade. Never trialed other meds. This has worked well for her. [facility] Surgical History (Updated 12/25/24 @ 14:10 by Nikki Pérez CMA) H/O dilation and curettage No pertinent past surgical history Family History Mother No problems noted. Father High blood pressure High cholesterol Mental health disorder Social History Housing: House Alcohol intake: current Alcohol intake frequency: holidays/special occasions only Patient Tobacco Use Status: Never used Tobacco e-Cigarette/Vaping Use: Never Used Second Hand Smoke Exposure: No service: No Current occupational status: employed and unemployed Current occupation: [employer] Current occupational exposures/hazards: No Cognitive needs: No Hearing needs: No Vision needs: Yes (Glasses) Questionnaire PHQ-9 Over the last 2 weeks, how often have you been bothered by any of the following problems? 1. Little interest or pleasure in doing things: not at all 2. Feeling down, depressed, or hopeless: not at all 3. Trouble falling or staying asleep, or sleeping too much: not at all 4. Feeling tired or having little energy: not at all 5. Poor appetite or overeating: not at all 6. Feeling bad about yourself - or that you are a failure or have let yourself or your family down: not at all 7. Trouble concentrating on things, such as reading the newspaper or watching television: not at all 8. Moving or speaking so slowly that other people could have noticed. Or the opposite - being so fidgety or restless that you have been moving around a lot more than usual: not at all 9. Thoughts that you would be better off or of hurting yourself in some way: not at all Total score: 0 Depression Screening Interpretation: Negative Depression Screening Done: Yes 11667 - PHQ-9 Billing: Yes Source: Developed by Drs. Marshall Worley, Nery Zacarias, Enrique Barrera and colleagues, with an educational raul from [employer]. Thrive Questionnaire Date Thrive assessed: 12/25/24 I am a: Patient What is your living situation today?: I have a steady place to live Within the past 12 months, did the food you bought not last and you didn't have the money to get more?: Never true Within the past 12 months, did you worry whether your food would run out before you got money to buy more?: Never true Do you have trouble paying for medicines?: No Do you have trouble getting transportation to medical appointments?: No Do you have trouble paying your heating and electricity bill?: No Do you have trouble taking care of your child, family member or friend?: No Do you have trouble with day-to-day activities such as bathing, preparing meals, shopping, managing finances, etc.?: No Are you currently unemployed and looking for a job?: No Are you interested in more education?: No Please select the resources that you would like help with: None Currently or been in a relationship where the following occur: No concerns reported THRIVE Score: 0 AUDIT C Alcohol Use Questionnaire (AUDIT-C) 1. How often do you have a drink containing alcohol?: Never Total Score: 0 Score Reviewed/Action Taken: Yes RACHEL-7 AMB Questionnaire RACHEL-7 Date RACHEL - 7 assessed: 12/25/24 Feeling nervous, anxious, or on edge: 0 = Not at all Not being able to stop or control worryin = Not at all Worrying too much about different things: 0 = Not at all Trouble relaxin = Not at all Being so restless that it is hard to sit still: 0 = Not at all Becoming easily annoyed or irritable: 0 = Not at all Feeling afraid as if something awful might happen: 0 = Not at all Total RACHEL-7 score (0-4 normal; 5-9 mild; 10-14 moderate; 15-21 severe): 0 Source: Developed by Drs. Marshall Worley, Enrique Freedman and colleagues, with an educational raul from [employer]. RACHEL-7 Assessment Billing RACHEL-7 Assessment Tool: RACHEL-7 Assessment 65143 Physical exam (Primary Care) Tobacco/Smoking Status: Tobacco use Status Tobacco use date assessed 12/25/24 12/25/24 14:17 Patient Tobacco Use Status Never used Tobacco 12/25/24 14:17 e-Cigarette/Vaping Use Never Used 12/25/24 14:17 PHQ-9: PHQ-9 Score PHQ-9: Total score 0 12/25/24 14:17 Depression Screening Interpretation: Negative Thrive Assessment: Date of Thrive Assessment Date Thrive assessed 10/09/24 12/25/24 14:17 Currently or been in a relationship where the following occur: No concerns reported Const Orientation/consciousness: patient oriented x3 HENMT Ears: hearing grossly normal bilaterally Neck Thyroid: Thyroid normal Lymphatic: no lymphadenopathy noted Resp Auscultation: clear to auscultation bilaterally Cardio Rate: regular rate Rhythm: regular rhythm Heart sounds: S1 normal heart sound present and S2 normal heart sound present GI Inspection: Yes normal to inspection Palpation (GI): Soft to palpation and Other GI palpation findings present (nontender, no cva tenderness) Auscultation: normoactive bowel sounds Rectal Exam - Female: deferred Skin General skin exam: no rashes or lesions noted Neuro General: patient oriented x3, gait normal and no focal motor deficits Coding Level of Care Code Est Pt Level 3 (20983) Diagnoses Recurrent major depressive disorder, in full remission F33.42 Depression Type: major depressive disorder Major depression recurrence: recurrent Active/Remission status: in full remission Additional Codes RACHEL-7 Assessment Billing - RACHEL-7 Assessment Tool: RACHEL-7 Assessment 85344 ([id number]) PHQ-9 - 32911 - PHQ-9 Billing: Yes ([id number]) Assessment & Plan Assessment & Plan (1) Depression: Code(s): F32.A - Depression, unspecified Category: Medical Qualifiers: Depression Type: major depressive disorder Major depression recurrence: recurrent Active/Remission status: in full remission Qualified Code(s): F33.42 - Major depressive disorder, recurrent, in full remission Plan: Stable. Continue current regimen. Medications refilled today. Follow up if anything changes otherwise follow up for a physical exam. Patient understands and agrees with the plan. Medications: Changed From citalopram 20 mg PO DAILY 30 days 30 tabs 1RF F32.A - Depression, unspecified To citalopram 20 mg PO DAILY 90 days 90 tabs 3RF F32.A - Depression, unspecified
[2024-12-25 14:30] VITALS: BP 96/56; PULSE 88; O2SAT 98
--- OUTSIDE RECORDS SUMMARY | 2024-12-25 16:05 | XMS_ITS | Continuity of Care Document ---
Author Organization [facility] Address [address] [place] [address] Care Team Providers Care Editor Managing Director Name Role Phone Pato Rice MD Primary Care Provider [phone] Encounters Date Type Department Care Team Description 07/13/2020 Orders Only [facility] Orthopedic Surgery [address] [place] [phone] Roberto Lai PA 07/13/2020 Orders Only [facility] Orthopedic Surgery [address] [place] [address] Kranthi Ray MD 07/10/2020 Office Visit INTERNAL MED UNSPEC Pato Rice MD 07/03/2020 Travel 07/01/2020 Telephone CALL CENTER [address] [address] Kranthi Ray MD Patient Questions 06/18/2020 3:00 PM EDT Minor Procedure/Test [facility] Orthopedic Surgery [address] [place] [phone] Kranthi Ray MD Myalgic; Left-sided thoracic back pain, unspecified chronicity 06/12/2020 Travel 06/12/2020 Telephone [facility] Orthopedic Surgery [address] [place] [phone] Kranthi Ray MD Prior Authorization Request (TPI) 06/10/2020 Telephone [facility] Orthopedic Surgery [address] [place] [phone] Kranthi Ray MD Patient Questions 05/26/2020 8:05 AM EDT Minor Procedure/Test [facility] Orthopedic Surgery [address] [facility] [address] [place] [address] Kranthi Ray MD Subscapular bursitis (Primary Dx) 05/13/2020 Telephone [facility] Orthopedic Surgery [address] [facility] [address] [place] [address] Kranthi Ray MD Results (xray t spine ) 05/12/2020 Telephone [facility] Orthopedic Surgery [address] [address] Kranthi Ray MD Prior Authorization Request 05/12/2020 4:00 PM EDT Radiology [facility] Xray [address] [facility] [address] [place] [address] Back pain, unspecified back location, unspecified back pain laterality, unspecified chronicity 05/12/2020 Travel 05/12/2020 3:25 PM EDT Consult (Initial) [facility] Orthopedic Surgery [address] [address] Kranthi Ray MD Subscapular bursitis 05/11/2020 Orders Only [facility] Orthopedic Surgery [address] [address] Kranthi Ray MD 04/28/2020 Travel Allergies Active Allergy Reactions Criticality Noted Date Comments Sulfa Antibiotics Maculopapular Rash 06/18/2020 Hives Sulfamethoxazole W-Trimethoprim Maculopapular Rash 06/18/2020 Hives Medications No known medications Active Problems No known active problems Social History Smoking Status as of 12/25/2024 Tobacco Use Types Packs/Day Years Used Date Smoking Tobacco: Never Assessed Intimate Partner Violence Answer Date R ecorded Fear of Current or Ex-Partner Not on file Emotionally Abused Not on file 07/20/2023 Physically Abused Not on file 07/20/2023 Sexually Abused Not on file 07/20/2023 Feel Safe at Home Not on file 07/20/2023 Sex and Gender Information Value Date Recorded Sex Assigned at Not on file Legal Sex Female 2:43 PM EDT Gender Identity Not on file Sexual Orientation Not on file Plan of Treatment Not on file Procedures * Due to [facility] law, this organization might not be sharing negative HIV tests. Procedure Name Priority Date/Time Associated Diagnosis Comments XRAY SPINE, THORACIC, 2 VIEWS Routine 05/12/2020 3:52 PM EDT Back pain, unspecified back location, unspecified back pain laterality, unspecified chronicity Results * Due to [place] [employer] law, this organization might not be sharing negative HIV tests. * XRAY SPINE, THORACIC, 2 VIEWS FC (05/12/2020 3:52 PM EDT) Anatomical Region Laterality Modality Spine Radiographic Sri ging 05/13/2020 12:3 0 PM EDT Narrative 05/13/2020 12:30 PM EDT EXAM: ??THORACIC SPINE SERIES: TECHNIQUE: ??AP and lateral views. COMPARISON: None FINDINGS: Vertebral body heights and alignment are within normal limits. ??No fracture or destructive lesion is identified. Disk spaces are grossly unremarkable. ??No significant degenerative change is appreciated. No abnormality of the paravertebral soft tissues is identified. IMPRESSION: ?? Unremarkable thoracic spine series. Procedure Note Jonathan Arzola MD - 05/13/2020 EXAM: THORACIC SPINE SERIES: TECHNIQUE: AP and lateral views. COMPARISON: None FINDINGS: Vertebral body heights and alignment are within normal limits. Nofracture or destructive lesion is identified. Disk spaces are grossly unremarkable. No significant degenerative changeis appreciated. No abnormality of the paravertebral soft tissues is identified. IMPRESSION: Unremarkable thoracic spine series. Kranthi Ray MD IMG XRAY NO CONTRAST ANY SCOTT Final Result Visit Diagnoses Diagnosis Start Date Back pain, unspecified back location, unspecified back pain laterality, unspecified chronicity 05/11/2020 Back pain, unspecified back location, unspecified back pain laterality, unspecified chronicity 05/12/2020 Subscapular bursitis Other bursitis disorders 05/12/2020 Subscapular bursitis Other bursitis disorders 05/26/2020 Myalgic Mylagia and myositis, unspecified 06/18/2020 Left-sided thoracic back pain, unspecified chronicity 06/18/2020 Left shoulder pain, unspecified chronicity 07/13/2020 Care Teams Editor Managing Director Relationship Specialty Start Date End Date Pato Rice MD [address] [place] [id number] PCP - General Internal Medicine 04/28/20
--- OUTSIDE RECORDS SUMMARY | 2024-12-25 16:05 | XMS_ITS | Encounter Summary ---
Author Organization [facility] Address [address] [place] [address] Care Team Providers Care Associate Financial Analyst Name Role Phone Pato Rice MD Primary Care Provider [phone] Reason for Visit * Reason Comments Prior Authorization Request TPI Encounter Details Date Type Department Care Team ([facility] st Contact Info) Description 06/12/2020 Telephone [facility] Orthopedic Surgery [address] [place] [phone] Kranthi Ray MD [address] [place] [address] Prior Authorization Request (TPI) Social History Tobacco Use Types Packs/Day Years Used Date Smoking Tobacco: Never Assessed Comments Unknown Sex and Gender Information Value Date Recorded Sex Assigned at Not on file Legal Sex Female 2:43 PM EDT Gender Identity Not on file Sexual Orientation Not on file COVID-19 Exposure Response Date Recorded In the last month, have you been in contact with someone who was confirmed or suspected to have Coronavirus / COVID-19? No / Unsure 06/12/2020 1:09 PM EDT documented as of this encounter Miscellaneous Notes * Telephone Encounter - Deepthi Payne - 06/12/2020 2:44 PM EDT Noted pt. Has been scheduled Future Appointments Date Time Provider Department Phone 06/18/20 3:00 PM Kranthi Ray MD [facility] Orthopedic Surgery [address] * Telephone Encounter - Chetna Quezada - 06/12/2020 11:32 AM EDT [employer] VIRI no auth required for TPI * Telephone Encounter - Deepthi Payne - 06/12/2020 11:26 AM EDT Please obtain auth for TPI documented in this encounter Plan of Treatment Not on file documented as of this encounter Visit Diagnoses Not on filedocumented in this encounter Care Teams Associate Financial Analyst Relationship Specialty Start Date End Date Pato Rice MD [address] [place] [address] PCP - General Internal Medicine 04/28/20 documented as of this encounter
--- OUTSIDE RECORDS SUMMARY | 2024-12-25 16:05 | XMS_ITS | Patient Health Record ---
Author Organization [facility] Address [address] [place] [phone] Care Team Providers Care Distributor Advertising Material Name Role Phone Obed Villa N.P. Primary Care Provider Marshall Calixto Unavailable [phone] ALLERGIES Allergen (clinical drug ingredient) Drug/Non Drug Allergy documented on EMR Reaction Allergy Type Onset Date Status Substance with sulfonamide structure and antibacterial mechanism of action (substance) Sulfa Antibiotics Unknown Drug Allergy A ctive sulfamethoxazole / trimethoprim Bactrim Unknown Drug Allergy Active REASON FOR REFERRAL No Information MEDICATIONS Medication SIG (Take, Route, Frequency, Duration) Notes Start Date End Date Status Dicyclomine HCl 10 MG 1-2 Orally Q 6 collins rs prn abdominal discomfort/cramps, or she can use 1 or 2 before a meal to try prevent abdominal discomfort after the meal for 30 day(s) 02/22/2022 Active Citalopram Hydrobromide 10 MG TAKE 1 TABLET BY MOUTH DAILY WITH 20MG TABLET Oral for 90 Active IMMUNIZATIONS Vaccine Route Administration Date Status Comme nts Influenza Unknown 11/24/2021 Administered SOCIAL HISTORY Tobacco Use: Social History Observation Description Date Details (start date - stop date) Never Smoker NA - NA Sex Assigned At : Social History Observation Description Sex Assigned At Unknown Tobacco Use/Smoking Question Answer Notes Patient is a nonsmoker Alcohol Screen Question Answer Notes Did you have a drink containing alcohol in the p ast year? No Points 0 Interpretation Negative PROBLEMS Problem Type ICD Code Onset Dates Problem Status W/U Status Risk SNOMED Code Notes Problem Abdominal pain, epigastric (R10.13) Active confirmed 44821314 Problem Irritable bowel syndrome with diarrhea (K58.0) Active confirmed [id number] Encounters Encounter Location Date Provider Diagnosis [facility] [address] [place] [address] 10/17/2024 Marshall Mejia [facility] [address] [place] [address] 10/16/2024 Marshall Mejia PLAN OF TREATMENT Pending Test Test Name Order Date [facility] 02/22/2022 Insurance Providers Payer Name Payer Address Payer Phone Subscriber Number Group Number Insured Name Patient Relationship to Insured Coverage Start Date Coverage End Date [facility] [address] [place] [address] [id number] STEFFANIE WILLS Self - patient is the insured MEDICAL (GENERAL) HISTORY Medical History History ICD Code Denies MD,DM,CVA,Lung disease,renal dise ase Depression for 10 years Headaches IBS Negative EGD and Colonoscopy [place] [address] Palacios in [place]--biopsies were negative for celiac disease, H.pylori, and colitis on biopsies Negative abdominal ultrasound in February Surgical History Surgery Date(Month/Year)
--- OUTSIDE RECORDS SUMMARY | 2024-12-25 16:05 | XMS_ITS | Encounter Summary ---
Author Organization [facility] Address [address] [place] [address] Care Team Providers Care Supervisor Quilting Name Role Phone Pato Rice MD Primary Care Provider [phone] Encounter Details Date Type Department Care Team ([facility] st Contact Info) Description 07/13/2020 Orders Only [facility] Orthopedic Surgery [address] [facility] [address] [place] [address] Roberto Lai PA [address] [facility] [address] [place] [address] Social History Tobacco Use Types Packs/Day Years [...] have Coronavirus / COVID-19? No / Unsure 07/03/2020 2:06 PM EDT documented as of this encounter Plan of Treatment Not on file documented as of this encounter Visit Diagnoses Not on filedocumented in this encounter Care Teams Supervisor Quilting Relationship Specialty Start Date End Date Pato Rice MD [address] [place] [address] PCP - General Internal Medicine 04/28/20 documented as of this encounter
--- OUTSIDE RECORDS SUMMARY | 2024-12-25 16:05 | XMS_ITS ---
Author Organization [facility] Address [address] [place] [address] Care Team Providers Care Service Learning Coordinator Name Role Phone Obed Villa N.P. Primary Care Provider Marshall Calixto [phone] REASON FOR VISIT cancel appt Encounters Encounter Location Date Provider Diagnosis [facility] [address] [place] [address] 10/16/2024 Marshall Mejia PLAN OF TREATMENT No Information
--- OUTSIDE RECORDS SUMMARY | 2024-12-25 16:05 | XMS_ITS ---
Author Organization [facility] Address [address] [place] [address] Care Team Providers Care Production Coordinator Name Role Phone Obed Villa N.P. Primary Care Provider Marshall Calixto [phone] REASON FOR VISIT small bowel obstruction Encounters Encounter Location Date Provider Diagnosis [facility] [address] [place] [address] 10/17/2024 Marshall Mejia PLAN OF TREATMENT No Information
== END 2024-12-25 14:50 | disposition home or self-care (01) ==
PROVIDERS: PCP Nurse Practitioner Family; Visit Provider Physician Assistant
DX: F33.42 Major depressive disorder, recurrent, in full remission (principal)

== ENCOUNTER → 2024-12-25 13:49 | Outpatient (BNVA) | payer BC, SELFPAY | PROVIDERS: PCP Nurse Practitioner Family; Visit Provider Physician Assistant | DX: F33.42 Major depressive disorder, recurrent, in full remission (principal); Z79.899 Other long term (current) drug therapy | CPT/HCPCS: 96127 ==

== ENCOUNTER 2025-06-19 07:54 | Outpatient (AMB) | payer BC, SELFPAY ==
--- OUTSIDE RECORDS SUMMARY | 2024-10-17 06:20 | XMS_ITS ---
Author Organization [facility] Address [address] [place] [id number] Care Team Providers Care Secondary Education Professor Name Role Phone Obed Villa N.P. Primary Care Provider Marshall Calixto [phone] REASON FOR VISIT small bowel obstruction Encounters Encounter Location Date Provider Diagnosis [facility] [address] [place] [id number] 10/17/2024 Marshall Mejia Plan Of Treatment No Information Progress Notes * NATIVIDAD WILLSIEDOB:1990 (34 yo F)Acc No.[id number]:10/17/2024 Progress Notes Patient: STEFFANIE GUTIÉRREZ Provider: Marlin Mejia MD :1990 A ge:33 Y S ex:Female Date:10/17/2024 Address:[address] [place], [place] [id number] Pcp:Obed Villa NNolberto Subjective: * Chief Complaints: * 1 . Small bowel obstruction. * Medical History: Objective: * Vitals: Assessment: Plan: * Treatment: * * The named appointment provid er may or may not be the originator of this progress note, and it is not deemed complete until electronically signed by the appointment provider. Sign off status: Pending * Provider: Marlin Mejia MD Date: 1 12/17/2023 Generated for Anyii ng/Faambroseg/eTransmitting on: 0 06/19/2025 07:57 AM EDT
--- OUTSIDE RECORDS SUMMARY | 2025-06-19 07:57 | XMS_ITS | Encounter Summary ---
Author Organization [facility] Address [address] [place] [address] Care Team Providers Care Bit And Shank Department Supervisor Name Role Phone Pato Rice MD Primary Care Provider [phone] Encounter Details Date Type Department Care Team ([facility] st Contact Info) Description 07/13/2020 Orders Only [facility] Orthopedic Surgery [address] [facility] [address] [place] [address] Roberto Lai PA [address] [facility] [address] [place] [address] Social History Tobacco Use Types Packs/Day Years [...] on filedocumented in this encounter Care Teams Bit And Shank Department Supervisor Relationship Specialty Start Date End Date Pato Rice MD [address] [place] [address] PCP - General Internal Medicine 04/28/20 documented as of this encounter
--- NOTE | 2025-06-19 08:02 | A.OFFPC_ITS ---
Vital Signs 06/19/25 08:03 Height 5 ft 2 in Weight 171 lb 2 oz BMI 31.3 BP 104/62 Blood Pressure Location Lt brachial Position Sitting Respiration 12 Pulse 83 Pulse Source Pulse Oximeter Temp 98.8 F Temp Source Oral Pulse Oximetry (%) 99 Oxygen Delivery Method Room Air Intake Visit Reasons: Annual pe Intake Note: Physical. 15 weeks . [employer] Administrator Required: No Allergies Sulfa (Sulfonamide Antibiotics) Allergy (Intermediate, Verified 06/19/25 08:03) Hives sulfamethoxazole (From Bactrim) Allergy (Mild, Verified 06/19/25 08:03) Hives trimethoprim (From Bactrim) Allergy (Mild, Verified 06/19/25 08:03) Hives Medication List - Last Reconciled 06/19/25 by Tania Najera PA-C citalopram 20 mg PO DAILY 90 days Tobacco use date assessed: 06/19/25 Dental Screening Dental Screen Date: 12/25/24 HPI Annual pe HPI Details Pt is a 34 y/o female who presents today to for a physical. She does have a history of a small-bowel obstruction diagnosed a few months ago, mild depression, mild anxiety and a history of gestational trophoblastic neoplasm GI: She did see [facility] following her SBO and had a colonoscopy, gastric emptying study and MRI of the abdomen and pelvis. She did not have abdominal surgery but she did have chemo and methotrexate a year prior. When they did the colonoscopy they did not note any adhesions. 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 She did follow with a fertility specialist following that because they were trying to get . She was told the likelihood of her being able to conceive was very low due to the amount of chemo. However, she tells me today she is 15 weeks . Following with [facility] and is very excited about this. She is currently working with [employer] and has a foster to adopt 6-month old. She also has a [id number] daughter at home. Psych: is well controlled on citalopram 20 mg. No SI/HI. Has been on citalopram for about a decade. Never trialed other meds. This has worked well for her and she was on her it for her last . Plans to continue this. [facility] Medical History (Updated 06/19/25 @ 08:17 by Tania Najera PA-C) Gestational trophoblastic neoplasm Surgical History (Updated 12/25/24 @ 14:10 by Nikki Pérez CMA) H/O dilation and curettage No pertinent past surgical history Family History Mother No problems noted. Father High blood pressure High cholesterol Mental health disorder Social History (Updated 12/25/24 @ 14:31 by Nikki Pérez CMA) Housing: House Alcohol intake: current Alcohol intake frequency: holidays/special occasions only Patient Tobacco Use Status: Never used Tobacco e-Cigarette/Vaping Use: Never Used Second Hand Smoke Exposure: No service: No Current occupational status: employed and unemployed Current occupation: [employer] Current occupational exposures/hazards: No Cognitive needs: No Hearing needs: No Vision needs: Yes (Glasses) Questionnaire Thrive Questionnaire Date Thrive assessed: 12/25/24 I am a: Patient What is your living situation today?: I have a steady place to live Within the past 12 months, did the food you bought not last and you didn't have the money to get more?: Never true Within the past 12 months, did you worry whether your food would run out before you got money to buy more?: Never true Do you have trouble paying for medicines?: No Do you have trouble getting transportation to medical appointments?: No Do you have trouble paying your heating and electricity bill?: No Do you have trouble taking care of your child, family member or friend?: No Do you have trouble with day-to-day activities such as bathing, preparing meals, shopping, managing finances, etc.?: No Are you currently unemployed and looking for a job?: No Are you interested in more education?: No Please select the resources that you would like help with: None Currently or been in a relationship where the following occur: No concerns reported THRIVE Score: 0 AUDIT C Alcohol Use Questionnaire (AUDIT-C) 1. How often do you have a drink containing alcohol?: Never 3. How often do you have six or more drinks on one occasion?: Never Total Score: 0 RACHEL-7 AMB Questionnaire RACHEL-7 Date RACHEL - 7 assessed: 12/25/24 Source: Developed by Drs. Marshall Worley, Nery BEnrique Cota and colleagues, with an educational raul from [employer] Physical exam (Primary Care) Tobacco/Smoking Status: Tobacco use Status Tobacco use date assessed 12/25/24 12/25/24 14:17 Patient Tobacco Use Status Never used Tobacco 12/25/24 14:31 e-Cigarette/Vaping Use Never Used 12/25/24 14:31 Thrive Assessment: Date of Thrive Assessment Date Thrive assessed 12/25/24 12/25/24 14:31 Currently or been in a relationship where the following occur: No concerns reported Const Orientation/consciousness: patient oriented x3 HENMT Ears: hearing grossly normal bilaterally and TM's normal bilaterally General nose exam: No nasal polyps present Face and sinus: Yes sinuses nontender Mouth: Normal oral and palatal mucosa present Eyes Pupils: Equal, round and reactive pupils present EOM: EOMs intact bilaterally Neck Neck: Yes full ROM and Yes no lymphadenopathy Thyroid: Thyroid normal Chest Chest palpation & inspection: normal inspection of the chest Resp Auscultation: clear to auscultation bilaterally Cardio Rate: regular rate Rhythm: regular rhythm Heart sounds: S1 normal heart sound present and S2 normal heart sound present Peripheral pulses: Peripheral pulses 2+ throughout GI Other: Soft, nontender Auscultation: normal bowel sounds Rectal Exam - Female: deferred General: Yes no CVA tenderness Back/Spine/Pelvis Other: Nontender Back: no CVA tenderness Skin General skin exam: no rashes or lesions noted Neuro General: patient oriented x3, gait normal, CN's II-XI intact bilaterally and deep tendon reflexes 2+ bilaterally Cranial nerves: Yes Equal, round and reactive pupils present Motor exam (neuro): 5/5 motor strength present throughout Sensory Exam: double simultaneous stimulation for sensation normal Coordination: [id number] test normal and Romberg test negative Extrem General: Yes normal to inspection and Yes full ROM Psych Affect: normal affect Attitude: cooperative Thought process: Normal thought process present Thought content: Normal thought content present Insight: Good insight present (Psych) Judgement: Good judgement present (Psych) Coding Level of Care Code Est Pt Prev Care 18-39y(13138) Diagnoses Encounter for routine history and physical examination Z00.00 Recurrent major depressive disorder, in full remission F33.42 Depression Type: major depressive disorder Major depression recurrence: recurrent Active/Remission status: in full remission 15 weeks gestation of Z3A.15 Assessment & Plan Assessment & Plan (1) Encounter for routine history and physical examination: Code(s): Z00.00 - Encounter for general adult medical examination without abnormal findings Plan: reviewed labs ordered dcf paperwork signed (2) Depression: Code(s): F32.A - Depression, unspecified Category: Medical Qualifiers: Depression Type: major depressive disorder Major depression recurrence: recurrent Active/Remission status: in full remission Qualified Code(s): F33.42 - Major depressive disorder, recurrent, in full remission Plan: very well controlled, in remission. continue current plan (3) 15 weeks gestation of : Code(s): Z3A.15 - 15 weeks gestation of Plan: following with BOGG Orders: Orders Lipid Panel Today F33.42 - Major depressive disorder, recurrent, in full remission, Z00.00 - Encounter for general adult medical examination without abnormal findings, Z3A.15 - 15 weeks gestation of UA CC w/rflx Micro + Cult Today F33.42 - Major depressive disorder, recurrent, in full remission, Z00.00 - Encounter for general adult medical examination without abnormal findings, Z13.220 - Encounter for screening for lipoid disorders, Z3A.15 - 15 weeks gestation of Complete Blood Count Auto Diff Today F33.42 - Major depressive disorder, recurrent, in full remission, Z00.00 - Encounter for general adult medical examination without abnormal findings, Z3A.15 - 15 weeks gestation of Comprehensive [place]. Panel Fast Today F33.42 - Major depressive disorder, recurrent, in full remission, Z00.00 - Encounter for general adult medical examination without abnormal findings, Z3A.15 - 15 weeks gestation of TSH reflex Free T4 Today F33.42 - Major depressive disorder, recurrent, in full remission, Z00.00 - Encounter for general adult medical examination without abnormal findings, Z3A.15 - 15 weeks gestation of
[2025-06-19 08:03] VITALS: BP 104/62; PULSE 83; RESP 12; TEMP 37.1; O2SAT 99; BMI 31.3
== END 2025-06-19 08:25 | disposition home or self-care (01) ==
LOC: HO.HMCFM 07:55
PROVIDERS: PCP Nurse Practitioner Family; Visit Provider Physician Assistant
DX: Z00.00 Encounter for general adult medical examination without abnormal findings (principal); F33.42 Major depressive disorder, recurrent, in full remission; Z3A.15 15 weeks gestation of pregnancy